=== PATIENT | female | born 1985 | race Caucasian/White ===

== ENCOUNTER 2022-03-23 08:21 | Inpatient (IN) | payer OTHER ==
[2022-03-20 11:55] VITALS: BMI 27.4
[2022-03-23] MEDS ORDERED: CEFAZOLIN 2 GM VIAL ONE (10:00)
[2022-03-23] MEDS ORDERED: Sodium Chloride 0.9% 100 ML ONE (10:00)
[2022-03-23 11:06] LABS: SARS-CoV-2 NAA Rapid Test Not Detected (NotDetected)
[2022-03-23] MEDS ORDERED: Midazolam HCl 2 mg/2 ml Vial ONE ×2 (12:21→15:20)
[2022-03-23] MEDS ORDERED: Ondansetron PF 4 MG/2 ML Vial ONE (12:53)
[2022-03-23] MEDS ORDERED: Dexamethasone 20 MG/5 ML VIAL ONE (12:53)
[2022-03-23] MEDS ORDERED: Ketorolac Tromethamine 30 MG/ML VIAL ONE (12:53)
[2022-03-23] MEDS ORDERED: PROPOFOL 200 MG/20 ML VIAL ONE (12:53)
[2022-03-23] MEDS ORDERED: Rocuronium Bromide 10 MG/ML (10ML VIAL) ONE (12:53)
[2022-03-23] MEDS ORDERED: fentaNYL PF 100 MCG/2 ML SYRINGE ONE (13:04)
[2022-03-23] MEDS ORDERED: FENTANYL 50 MCG/ML 1 ML VIAL ONE ×5 (13:52→15:06)
[2022-03-23] MEDS ORDERED: HYDROmorphone 0.5 MG/0.5 ML SYRINGE ONE ×5 (14:31→16:45)
[2022-03-23] MEDS ORDERED: Cyclobenzaprine 10 MG TAB PO PRN (15:38)
[2022-03-23] MEDS ORDERED: Ondansetron PF 4 MG/2 ML Vial IVP PRN (15:38)
[2022-03-23] MEDS ORDERED: Mag-Al 1200 mg/1200 mg/30 ML UDCUP PO PRN (15:38)
[2022-03-23] MEDS ORDERED: Morphine 2 MG/ML VIAL SLOW IVP PRN (15:38)
[2022-03-23] MEDS ORDERED: HYDROcodone/Acetaminophen 10/325 mg Tablet PO PRN (15:38)
[2022-03-23] MEDS ORDERED: Promethazine 25 MG TAB PO PRN (15:38)
[2022-03-23] MEDS ORDERED: diphenhydrAMINE 25 MG CAP PO PRN (15:38)
[2022-03-23] MEDS ORDERED: Acetaminophen 325 MG TAB PO PRN (15:38)
[2022-03-23] MEDS ORDERED: Milk Of Magnesia 30 ML UDCUP PO PRN (15:38)
[2022-03-23] MEDS ORDERED: traMADol HCl 50 MG TAB PO PRN (15:38)
[2022-03-23] MEDS ORDERED: Sodium Chloride 0.9% 1,000 ML IV SCH (15:45)
[2022-03-23] MEDS: CEFAZOLIN 2 GM in Sodium Chloride 0.9% 100 ML IVPB SCH (20:21)
[2022-03-23] MEDS: CeleCOXIB 100 MG CAP PO SCH (20:22)
[2022-03-23] MEDS: HYDROcodone/Acetaminophen 10/325 mg Tablet PO PRN (20:23)
[2022-03-23] MEDS: Gabapentin 300 MG CAP PO SCH (20:24)
[2022-03-23] MEDS ORDERED: Famotidine 20 MG TAB PO SCH (21:00)
[2022-03-23] MEDS ORDERED: NORETHINDRONE PO SCH (21:00)
[2022-03-23] MEDS ORDERED: tiZANidine HCl 4 MG TAB PO SCH (21:00)
[2022-03-23] MEDS ORDERED: Montelukast Sodium 10 mg Tablet PO SCH (21:00)
[2022-03-23] MEDS ORDERED: Loratadine 10 MG TAB PO SCH (21:00)
[2022-03-23] MEDS ORDERED: ETHINYL ESTRADIOL PO SCH (21:00)
[2022-03-23] MEDS ORDERED: Morphine 4 MG/ML VIAL SLOW IVP PRN (22:00)
[2022-03-24] MEDS: HYDROcodone/Acetaminophen 10/325 mg Tablet PO PRN ×3 (02:26→11:16)
[2022-03-24] MEDS: CEFAZOLIN 2 GM in Sodium Chloride 0.9% 100 ML IVPB SCH (05:47)
[2022-03-24] MEDS ORDERED: Levothyroxine Sodium 50 MCG TAB PO SCH (06:00)
[2022-03-24] MEDS ORDERED: Spironolactone 25 MG TAB PO SCH (08:00)
[2022-03-24] MEDS ORDERED: Fluticasone Propionate Nasal Spray 16 gm Bottle NASAL SCH (09:00)
[2022-03-24] MEDS ORDERED: Azelastine 137 MCG/Spray 30 ML NS SCH (09:00)
[2022-03-24] MEDS: Gabapentin 300 MG CAP PO SCH (09:06)
[2022-03-24] MEDS: CeleCOXIB 100 MG CAP PO SCH (09:08)
[2022-03-24 11:13] VITALS: BP 118/76; TEMP 98.1
== END 2022-03-24 12:35 | disposition home or self-care (01) | DRG 472 ==
LOC: SURG A 08:21 → SURG B 17:35
PROVIDERS: ADMIT Neurological Surgery; ATTEND Neurological Surgery
PROC: 0RG20A0 Fusion of 2 or more Cervical Vertebral Joints with Interbody Fusion Device, Anterior Approach, Anterior Column, Open Approach (ICD-10-PCS; principal; 2022-03-23)
PROC: 0RT30ZZ Resection of Cervical Vertebral Disc, Open Approach (ICD-10-PCS; 2022-03-23)
PROC: 00NW0ZZ Release Cervical Spinal Cord, Open Approach (ICD-10-PCS; 2022-03-23)
DX: M50.121 Cervical disc disorder at C4-C5 level with radiculopathy (principal); G95.29 Other cord compression; Z99.81 Dependence on supplemental oxygen; Z20.822 Contact with and (suspected) exposure to COVID-19; E78.5 Hyperlipidemia, unspecified; G47.30 Sleep apnea, unspecified; Z91.013 Allergy to seafood; Z88.8 Allergy status to other drugs, medicaments and biological substances; Z87.891 Personal history of nicotine dependence; Z90.49 Acquired absence of other specified parts of digestive tract; Z98.890 Other specified postprocedural states
CPT/HCPCS: 80048; 85027; 93005; 93010; C1713; J1100; J1170; J1885; J2250; J2270; J2405; J2704; J3010; J3490; U0002

== ENCOUNTER 2022-04-16 12:48 | Outpatient (CLI) | payer OTHER | END 2022-04-16 12:49 | disposition home or self-care (01) | LOC: TBSIIMAG 12:48 | PROVIDERS: ATTEND Neurological Surgery | DX: M54.12 Radiculopathy, cervical region (principal); Z98.1 Arthrodesis status | CPT/HCPCS: 72040 ==